=== PATIENT | female | born 1980 | race Caucasian/White ===

== ENCOUNTER 2020-07-08 09:48 | Emergency (ER) | payer SELFPAY ==
[~2020-07-08] VITALS: Ht 162 cm; Wt 77.0 kg
[~2020-07-08 09:48] MED LIST: AMOX500C2 PO; CHLO15MO3 MM; HYDR-1231 PO; NAPR-1070 PO; NAPR-1071 PO; TRM50T PO
--- NOTE | 2020-07-08 10:00 | ED EENT ---
History of Present Illness General Chief Complaint: Oral/Throat Problems Stated Complaint: SORE THROAT Source: patient History of Present Illness Date Seen by Provider: Jul 08, 2020 Time Seen by Provider: 09:56 Initial Comments 40-year-old female presents with sore throat. Patient reports he has been there for 3 to 4 weeks. She saw urgent care week ago and was told may be strep-like illness and nothing else was done or tested. Patient denies any fevers or chills. She does have a history of reflux but does not take any for it. She does not have a primary care provider that she is followed up with. She has no fevers or chills. She has no nausea vomiting or other systemic complaints. Allergies and Home Medications Allergies Coded Allergies: No Known Drug Allergies (Unverified , 12/16/14) Home Medications Amoxicillin 500 Mg Capsule, 1 EACH PO TID Prescribed by: AKIN PINTO on 12/16/14 1611 Chlorhexidine Gluconate 480 Ml Mouthwash, 480 ML MM BID Prescribed by: AKIN PINTO on 12/16/14 1617 Hydrocodone Bit/Acetaminophen 1 Tab Tablet, 1 TAB PO Q4H PRN for PAIN Prescribed by: LEON MENDOZA on 12/19/14 1626 Naproxen 500 Mg Tablet, 500 MG PO BID Prescribed by: JASON BLANCO on 04/23/15 1738 Naproxen Sodium 550 Mg Tablet, 550 MG PO BID PRN for PAIN Prescribed by: FABIEN ELKINS on 03/19/16 0656 Tramadol HCl 50 Mg Tablet, 50 MG PO Q6H PRN for PAIN Prescribed by: JASON BLANCO on 04/23/15 1738 Patient Home Medication List Home Medication List Reviewed: Yes Review of Systems Review of Systems Constitutional: No chills, No fever Eyes: No Symptoms Reported Ears: No Symptoms Reported Nose: no symptoms reported Mouth: no symptoms reported Throat: see HPI Respiratory: no symptoms reported Cardiovascular: no symptoms reported Musculoskeletal: no symptoms reported Skin: no symptoms reported Neurological: No Symptoms Reported Past Grxbncl-Jjuooy-Bncrgf Hx Past Med/Social Hx: Reviewed Nursing Past Med/Soc Hx Patient Social History Alcohol Beverage of Choice: Beer Type Used: Cigarettes Recent Hopitalizations: No Past Medical History Reproductive Disorders: No Sexually Transmitted Disease: No Adverse Reaction/Blood Tranf: No Family Medical History No Pertinent Family Hx Physical Exam Vital Signs Vital Signs - First Documented 07/08/20 09:56 Temp 36.8 Pulse 131 Resp 20 B/P (MAP) 120/91 (101) Pulse Ox 100 O2 Delivery Room Air Height, Weight, BMI Height: 5'4" Weight: 195lbs. oz. 88.369118hq; 30.03 BMI Method:Stated General Appearance: WD/WN, no apparent distress Eyes: bilateral eye normal inspection Nose: normal inspection Mouth/Throat: other (Posterior pharynx erythema) Neck: lymphadenopathy (L) Cardiovascular: normal peripheral pulses, regular rate, rhythm Respiratory: lungs clear, normal breath sounds Gastrointestinal: non tender, soft Neurologic/Psychiatric: alert, normal mood/affect, oriented x 3 Skin: normal color, warm/dry Progress/Results/Core Measures Results/Orders Lab Results Laboratory Tests Test 07/08/20 10:05 Range/Units Group A Streptococcus Screen NEGATIVE NEGATIVE My Orders Orders - CLEO HARDY DO Rapid Strep A Screen (07/08/20 10:00) Vital Signs/I&O 07/08/20 09:56 Temp 36.8 Pulse 131 Resp 20 B/P (MAP) 120/91 (101) Pulse Ox 100 O2 Delivery Room Air Progress Progress Note : Time: 10:28 Progress Note Patient with negative strep. Her pharyngitis this comfort has been going on for at least 3 weeks in a month. Does not seem to be infectious in nature. Discussed with her that could be allergic in nature versus side effect of reflux. I recommend she start Flonase, Zyrtec and Pepcid. But if her symptoms are not improving within 2 weeks for likely establish a primary care provider and have a further evaluation. She did have worse pain with lifting discussed. Therapies do not work and she continues to have sore throat swollen lymph nodes she may be evaluated for HIV and other etiologies. Patient stable at this time Departure Impression Primary Impression: Pharyngitis Qualified Codes: J02.9 - Acute pharyngitis, unspecified Disposition: HOME, SELF-CARE Condition: Stable Departure-Patient Inst. Referrals: NO,LOCAL PHYSICIAN (PCP/Family) Primary Care Physician Patient Instructions: Acid Reflux and GERD in Adults (DC) Add. Discharge Instructions: Zyrtec daily, Flonase or similar nasal spray as directed on package, famotidine daily as directed on package If symptoms are not improved within 2 weeks, please establish a primary care provider for further outpatient evaluation Emergency department focuses on treating and ruling out life-threatening diseases. Whenever possible, a diagnosis is given. However, most patients are given an impression based on their history, physical exam, and workup during your brief time in the ER. Information about probable diagnosis and other educational material has been provided. Please take the time to read and underst and this information. It is very important that you follow up with a physician as discussed during the visit today. Failure to adhere to your follow-up instructions may lead to severe disability, injury, or so please make sure to keep your appointments or obtain one as requested. Please keep in mind the emergency department is not designed to your primary care or "family doctor" and nonurgent issues are best evaluated by an outpatient physician All discharge instructions reviewed with patient and/or family. Voiced understanding. CLEO HARDY DO Jul 08, 2020 10:00
[2020-07-08 10:38] VITALS: BP 120/91
== END 2020-07-08 10:38 | disposition home or self-care (01) ==
LOC: EDUNIT# 09:48 → ER 09:49
DX: J02.9 Acute pharyngitis, unspecified (principal)
CPT/HCPCS: 87430; 99284

== ENCOUNTER 2020-07-10 05:58 | Emergency (ER) | payer SELFPAY ==
[~2020-07-10] VITALS: Ht 162 cm; Wt 77.0 kg
--- NOTE | 2020-07-10 06:40 | ED EENT ---
History of Present Illness General Chief Complaint: Oral/Throat Problems Stated Complaint: COUGH,SORE THROAT,TESTED NEG 1 WEEK AGO Source: patient Exam Limitations: no limitations History of Present Illness Date Seen by Provider: Jul 10, 2020 Time Seen by Provider: 06:30 Initial Comments The patient presents to the ER by private conveyance with chief complaint of 2 weeks sore throat feeling like she has something in the back of her throat making it difficult to swallow fluids. She is not having a hard time breathing. No fevers or chills. She was here yesterday and was swabbed for strep which was negative. It has woke her up several times in the night. No other significant medical history. She does have very poor dentition and does not follow with a dentist or primary care doctor. She has been using Tylenol, ibuprofen and cough medicine to help with her sore throat. She rates her pain presently as an 8 out of 10. Allergies and Home Medications Allergies Coded Allergies: No Known Drug Allergies (Unverified , 12/16/14) Home Medications Amoxicillin 500 Mg Capsule, 1 EACH PO TID Prescribed by: AKIN PINTO on 12/16/14 1611 Amoxicillin 500 Mg Capsule, 500 MG PO TID Prescribed by: JENNIFER FARNSWORTH on 07/10/20 0756 Chlorhexidine Gluconate 480 Ml Mouthwash, 480 ML MM BID Prescribed by: AKIN PINTO on 12/16/14 1617 Hydrocodone Bit/Acetaminophen 1 Tab Tablet, 1 TAB PO Q4H PRN for PAIN Prescribed by: LEON MENDOZA on 12/19/14 1626 Naproxen 500 Mg Tablet, 500 MG PO BID Prescribed by: JASON BLANCO on 04/23/15 1738 Naproxen Sodium 550 Mg Tablet, 550 MG PO BID PRN for PAIN Prescribed by: FABIEN ELKINS on 03/19/16 0656 Tramadol HCl 50 Mg Tablet, 50 MG PO Q6H PRN for PAIN Prescribed by: JASON BLANCO on 04/23/15 1738 Patient Home Medication List Home Medication List Reviewed: Yes Review of Systems Review of Systems Constitutional: No chills, No diaphoresis Eyes: Denies Blindness, Denies Pain Ears: Denies Dizziness, Denies Pain Nose: denies clots, denies pain Mouth: denies pain, denies swelling Throat: see HPI, pain, swelling; denies neck stiffness, denies hoarse, denies aphonia, denies muffled; painful swallowing, difficulty with fluids Respiratory: cough (Nonproductive); No phlegm, No short of breath Cardiovascular: No chest pain, No edema Gastrointestinal: No abdominal pain, No nausea : No Past Fhauclm-Lqfljk-Nunaav Hx Patient Social History Alcohol Use: Occasionally Uses Alcohol Beverage of Choice: Beer Smoking Status: Current Everyday Smoker Type Used: Cigarettes Recent Hopitalizations: No Seasonal Allergies Seasonal Allergies: No Past Medical History Surgeries: No Respiratory: No Cardiac: Yes (tachycardia) Neurological: No Reproductive Disorders: No Sexually Transmitted Disease: No Genitourinary: No Gastrointestinal: Yes Gastroesophageal Reflux Musculoskeletal: No Endocrine: No HEENT: No Cancer: No Psychosocial: Yes Depression Integumentary: No Blood Disorders: No Adverse Reaction/Blood Tranf: No Family Medical History No Pertinent Family Hx Physical Exam Vital Signs Vital Signs - First Documented 07/10/20 06:24 Temp 36.7 Pulse 114 Resp 18 B/P (MAP) 129/92 (104) Pulse Ox 97 O2 Delivery Room Air Height, Weight, BMI Height: 5'4" Weight: 195lbs. oz. 88.661465fn; 29.00 BMI Method:Stated General Appearance: WD/WN, mild distress Eyes: bilateral eye normal inspection, bilateral eye PERRL, bilateral eye EOMI Ears: bilateral ear auricle normal, bilateral ear canal normal, bilateral ear TM normal Nose: normal inspection; No active bleeding, No discharge Mouth/Throat: No tongue swollen, No tonsillar exudate, No uvula swelling, No voice changes; other (Retropharyngeal erythema, injection and left-sided peritonsillar soft tissue edema. Extensive dental caries with multiple broken teeth and gingivitis.) Neck: full range of motion, normal inspection, other (Palpable 1 x 3 cm tender, mobile lymph node on the anterior superior cervical lymph node chain.) Cardiovascular: normal peripheral pulses, regular rate, rhythm Respiratory: lungs clear, normal breath sounds Neurologic/Psychiatric: alert, oriented x 3 Skin: normal color, warm/dry Progress/Results/Core Measures Results/Orders Lab Results Laboratory Tests Test 07/10/20 06:35 Range/Units White Blood Count 8.7 4.3-11.0 10^3/uL Red Blood Count 4.21 3.80-5.11 10^6/uL Hemoglobin 10.6 L 11.5-16.0 g/dL Hematocrit 34 L 35-52 % Mean Corpuscular Volume 80 80-99 fL Mean Corpuscular Hemoglobin 25 25-34 pg Mean Corpuscular Hemoglobin Concent 32 32-36 g/dL Red Cell Distribution Width 15.4 H 10.0-14.5 % Platelet Count 437 H 130-400 10^3/uL Mean Platelet Volume 9.7 9.0-12.2 fL Immature Granulocyte % (Auto) 0 % Neutrophils (%) (Auto) 75 42-75 % Lymphocytes (%) (Auto) 13 12-44 % Monocytes (%) (Auto) 10 0-12 % Eosinophils (%) (Auto) 1 0-10 % Basophils (%) (Auto) 1 0-10 % Neutrophils # (Auto) 6.6 1.8-7.8 10^3/uL Lymphocytes # (Auto) 1.1 1.0-4.0 10^3/uL Monocytes # (Auto) 0.8 0.0-1.0 10^3/uL Eosinophils # (Auto) 0.1 0.0-0.3 10^3/uL Basophils # (Auto) 0.1 0.0-0.1 10^3/uL Immature Granulocyte # (Auto) 0.0 0.0-0.1 10^3/uL Sodium Level 134 L 135-145 MMOL/L Potassium Level 4.7 3.6-5.0 MMOL/L Chloride Level 100 98-107 MMOL/L Carbon Dioxide Level 22 21-32 MMOL/L Anion Gap 12 5-14 MMOL/L Blood Urea Nitrogen 14 7-18 MG/DL Creatinine 0.78 0.60-1.30 MG/DL Estimat Glomerular Filtration Rate > 60 BUN/Creatinine Ratio 18 Glucose Level 103 70-105 MG/DL Calcium Level 8.6 8.5-10.1 MG/DL Corrected Calcium 9.0 8.5-10.1 MG/DL Total Bilirubin 0.4 0.1-1.0 MG/DL Aspartate Amino Transf (AST/SGOT) 30 5-34 U/L Alanine Aminotransferase (ALT/SGPT) 33 0-55 U/L Alkaline Phosphatase 152 H 40-136 U/L Total Protein 9.0 H 6.4-8.2 GM/DL Albumin 3.5 3.2-4.5 GM/DL Serum Test, Qualitative NEGATIVE NEGATIVE My Orders Orders - JENNIFER FRANSWORTH Ketorolac Injection (Toradol Injection) (07/10/20 06:45) Cbc With Automated Diff (07/10/20 06:35) Comprehensive Metabolic Panel (07/10/20 06:35) Ct Neck (Soft Tissue) W (07/10/20 06:35) Lactated Ringers (Lr 1000 Ml Iv Solution (07/10/20 06:45) Ed Iv/Invasive Line Start (07/10/20 06:35) Hcg,Qualitative Serum (07/10/20 06:40) Iohexol Injection (Omnipaque 350 Mg/Ml 1 (07/10/20 07:30) Ns (Ivpb) (Sodium Chloride 0.9% Ivpb Bag (07/10/20 07:30) Ceftriaxone For Iv Use (Rocephin For I (07/10/20 08:00) Medications Given in ED Current Medications Medications Dose Ordered Sig/Cynthia Route Start Time Stop Time Status Last Admin Dose Admin Ceftriaxone Sodium 1000 mg/ Sterile Water 10 ml @ 200 mls/hr ONCE ONCE IV 07/10/20 08:00 07/10/20 08:02 DC 07/10/20 08:03 200 MLS/HR Iohexol 75 ml ONCE ONCE IV 07/10/20 07:30 07/10/20 07:31 DC 07/10/20 07:24 75 ML Ketorolac Tromethamine 30 mg ONCE ONCE IVP 07/10/20 06:45 07/10/20 06:46 DC 07/10/20 06:49 30 MG Lactated Ringer's 1,000 ml @ 0 mls/hr Q0M ONCE IV 07/10/20 06:45 07/10/20 06:46 DC 07/10/20 06:49 1,000 MLS/HR Sodium Chloride 80 ml ONCE ONCE IV 07/10/20 07:30 07/10/20 07:31 DC 07/10/20 07:24 80 ML Vital Signs/I&O 07/10/20 06:24 Temp 36.7 Pulse 114 Resp 18 B/P (MAP) 129/92 (104) Pulse Ox 97 O2 Delivery Room Air Progress Progress Note : Time: 06:43 Progress Note Suspect a soft tissue infection possible abscess. Plan to get a CT scan and some basic labs as well as give her a liter of fluids. Will initiate antibiotics as appropriate. Previous rapid strep culture is pending. Diagnostic Imaging Diagonstic Imaging: CT Plain Films/CT/US/NM/MRI: other (Soft tissue neck) Comments Prominent bilateral Ester tonsils with subtle associated hypoattenuation measuring up to 7 mm on the left. Consistent with tonsillitis. Hypoattenuation is favored to represent phlegmon or edema but an early abscess formation is not excluded. Pharyngeal mucosal thickening compatible with pharyngitis. NAME: ONI STACY MED REC#: [id number] PT STATUS: REG ER : 1980 PHYSICIAN: JENNIFER FARNSWORTH MD ADMIT DATE: 07/10/20/ER Draft Date of Exam:07/10/20 CT NECK (SOFT TISSUE) W PROCEDURE: CT neck soft tissue with contrast. TECHNIQUE: Multiple contiguous axial images were obtained through the neck after the administration of contrast. Auto Exposure Controls were utilized during the CT exam to meet ALARA standards for radiation dose reduction. INDICATION: Cough and sore throat. A retropharyngeal abscess COMPARISON: None FINDINGS: The parotid, submandibular, and thyroid glands are unremarkable. There are prominent level 2 lymph nodes bilaterally, which are most likely reactive. These appear symmetric. There is mild thickening of the pharyngeal mucosa, but there is no rim-enhancing or drainable fluid collection seen. The tonsils are mildly prominent, but again no drainable fluid collection is seen. No calcifications are identified. No enhancing masses are seen. No acute osseous abnormality is seen. Imaged portions of the lung apices appear normal. IMPRESSION: 1. Pharyngitis with no rim-enhancing or drainable fluid collection seen in the neck. 2. Mildly prominent cervical lymph nodes bilaterally, likely reactive. Dictated on workstation # [id number] Dict: 07/10/20 0738 Trans: 07/10/20 0746 [facility] [id number] Interpreted by: WESTLEY BLANCHARD MD Electronically signed by: Reviewed: Reviewed by Me Departure Impression Primary Impression: Tonsillopharyngitis Disposition: 01 HOME, SELF-CARE Condition: Stable Departure-Patient Inst. Decision time for Depature: 07:54 Referrals: NO,LOCAL PHYSICIAN (PCP/Family) Primary Care Physician Patient Instructions: Tooth Abscess (DC) Add. Discharge Instructions: Your strep throat culture from yesterday is still pending and does not have a read yet today. However it is possible you have a bacterial infection in your neck it just does not causing a collection of fluid known as an abscess to be drained. We will put you on some antibiotics to help clear this over the next week. You can start them tomorrow morning 1 capsule amoxicillin 3 times a day. Salt water gargles for swelling in the throat as often as necessary. Throat lozenges or Chloraseptic sprays may also be helpful for painful swallowing. If at the end of 1 week of antibiotics you are still having significant symptoms then please return to your primary care doctor or to the ER for further evaluation and management. All discharge instructions reviewed with patient and/or family. Voiced understanding. Scripts Amoxicillin (Amoxicillin) 500 Mg Capsule 500 MG PO TID for 7 Days, #21 CAP 0 Refills Prov: JENNIFER FARNSWORTH 07/10/20 JENNIFER FARNSWORTH Jul 10, 2020 06:40
[2020-07-10] MEDS ORDERED: LACTATED RINGERS 1,000 ML IV ONE (06:45)
[2020-07-10] MEDS ORDERED: KETOROLAC 30 MG/ML VIAL IVP ONE (06:45)
[2020-07-10 06:47] LABS: BASOPHILS # (AUTO) 0.1 10^3/uL (0.0-0.1); BASOPHILS % (AUTO) 1 % (0-10); EOSINOPHILS # (AUTO) 0.1 10^3/uL (0.0-0.3); EOSINOPHILS % (AUTO) 1 % (0-10); HEMATOCRIT 34 % (35-52); HEMOGLOBIN 10.6 g/dL (11.5-16.0); LYMPHOCYTES # (AUTO) 1.1 10^3/uL (1.0-4.0); LYMPHOCYTES % (AUTO) 13 % (12-44); MEAN CORPUSCULAR HEMOGLOBIN 25 pg (25-34); MEAN CORPUSCULAR HGB CONC 32 g/dL (32-36); MEAN CORPUSCULAR VOLUME 80 fL (80-99); MEAN PLATELET VOLUME 9.7 fL (9.0-12.2); MONOCYTES # (AUTO) 0.8 10^3/uL (0.0-1.0); MONOCYTES % (AUTO) 10 % (0-12); NEUTROPHILS # (AUTO) 6.6 10^3/uL (1.8-7.8); NEUTROPHILS % (AUTO) 75 % (42-75); PLATELET COUNT 437 10^3/uL (130-400); WHITE BLOOD COUNT 8.7 10^3/uL (4.3-11.0)
[2020-07-10 07:02] LABS: ALBUMIN 3.5 GM/DL (3.2-4.5); CHLORIDE 100 MMOL/L (98-107); POTASSIUM 4.7 MMOL/L (3.6-5.0); SODIUM 134 MMOL/L (135-145)
[2020-07-10 07:03] LABS: CALCIUM 8.6 MG/DL (8.5-10.1)
[2020-07-10 07:05] LABS: GLUCOSE 103 MG/DL (70-105)
[2020-07-10 07:06] LABS: BILIRUBIN,TOTAL 0.4 MG/DL (0.1-1.0); CARBON DIOXIDE 22 MMOL/L (21-32)
[2020-07-10 07:08] LABS: ALKALINE PHOSPHATASE 152 U/L (40-136); CREATININE SERUM 0.78 MG/DL (0.60-1.30); GFR ESTIMATED > 60
[2020-07-10 07:09] LABS: BUN/CREATININE RATIO 18
[2020-07-10 07:11] LABS: ALANINE AMINOTRANSFERASE 33 U/L (0-55)
[2020-07-10] MEDS ORDERED: NS 100 ML (IVPB) BAG IV ONE (07:30)
[2020-07-10] MEDS ORDERED: IOHEXOL 350 MG/ML 100 ML (OMNIPAQUE 350) VIAL IV ONE (07:30)
--- NOTE | 2020-07-10 07:46 | Diagnostic Imaging Report ---
PROCEDURE: CT neck soft tissue with contrast. TECHNIQUE: Multiple contiguous axial images were obtained through the neck after the administration of contrast. Auto Exposure Controls were utilized during the CT exam to meet ALARA standards for radiation dose reduction. INDICATION: Cough and sore throat. A retropharyngeal abscess COMPARISON: None FINDINGS: The parotid, submandibular, and thyroid glands are unremarkable. There are prominent level 2 lymph nodes bilaterally, which are most likely reactive. These appear symmetric. There is mild thickening of the pharyngeal mucosa, but there is no rim-enhancing or drainable fluid collection seen. The tonsils are mildly prominent, but again no drainable fluid collection is seen. No calcifications are identified. No enhancing masses are seen. No acute osseous abnormality is seen. Imaged portions of the lung apices appear normal. IMPRESSION: 1. Pharyngitis with no rim-enhancing or drainable fluid collection seen in the neck. 2. Mildly prominent cervical lymph nodes bilaterally, likely reactive. Dictated by: Dictated on workstation # [id number]
[2020-07-10] MEDS ORDERED: AMOX500C2 PO (07:56)
[2020-07-10] MEDS ORDERED: cefTRIAXone FOR IV USE 1,000 MG in WATER (STERILE) FOR INJECTION 10 ML IV ONE (08:00)
[2020-07-10 08:18] VITALS: BP 117/71
== END 2020-07-10 08:18 | disposition home or self-care (01) ==
LOC: EDUNIT# 05:58 → ER 06:01
DX: B00.2 Herpesviral gingivostomatitis and pharyngotonsillitis (principal); F17.210 Nicotine dependence, cigarettes, uncomplicated
CPT/HCPCS: 36415; 70491; 80053; 84703; 85025

== ENCOUNTER 2021-02-23 11:00 | Emergency (ER) | payer SELFPAY ==
[~2021-02-23] VITALS: Ht 165 cm; Wt 63.6 kg
[2021-02-23] MEDS ORDERED: CYCL10TA9 PO (11:26)
--- NOTE | 2021-02-23 11:26 | ED Upper Extremity ---
General Chief Complaint: Upper Extremity Stated Complaint: R HAND PAIN Nursing Triage Note: AMB TO ED WITH C/O R WRIST PAIN X1 WEEK WORSE AT NIGHT . HAS NOT TAKEN ANY OTC PAIN MEDS (NATASHA RICKS APRN) History of Present Illness Date Seen by Provider: Feb 23, 2021 Time Seen by Provider: 11:14 Initial Comments This is a well-appearing 41-year-old female presented to the ER with complaints of right wrist numbness. States she has a history of carpal tunnel syndrome and while doing hospital today has exacerbated her symptoms. States that she has plans to follow-up with primary care provider today as her symptoms are progressively worsening. Has not tried ice or anti-inflammatories. States that her symptoms improve with rest and hanging her hand down. (NATASHA RICKS APRN) Allergies and Home Medications Allergies Coded Allergies: No Known Drug Allergies (Unverified , 12/16/14) Patient Home Medication List Home Medication List Reviewed: Yes (NATASHA RICKS APRN) Amoxicillin (Amoxicillin) 500 Mg Capsule, 1 EACH PO TID Prescribed by: AKIN PINTO on 12/16/14 1611 Amoxicillin (Amoxicillin) 500 Mg Capsule, 500 MG PO TID Prescribed by: JENNIFER FARNSWORTH on 07/10/20 0756 Chlorhexidine Gluconate (Peridex) 480 Ml Mouthwash, 480 ML MM BID Prescribed by: AKIN PINTO on 12/16/14 1617 Cyclobenzaprine HCl (Cyclobenzaprine HCl) 10 Mg Tablet, 10 MG PO Q8H PRN for SPASMS Prescribed by: NATASHA RICKS on 02/23/21 1126 Hydrocodone Bit/Acetaminophen (Hydrocodone-Apap 5-325 Tablet) 1 Tab Tablet, 1 TAB PO Q4H PRN for PAIN Prescribed by: LEON MENDOZA on 12/19/14 1626 Naproxen (Naprosyn) 500 Mg Tablet, 500 MG PO BID Prescribed by: JASON BLANCO on 04/23/15 1738 Naproxen Sodium (Anaprox Ds) 550 Mg Tablet, 550 MG PO BID PRN for PAIN Prescribed by: FABIEN ELKINS on 03/19/16 0656 Tramadol HCl (Tramadol HCl) 50 Mg Tablet, 50 MG PO Q6H PRN for PAIN Prescribed by: JASON BLANCO on 04/23/15 1738 Review of Systems Constitutional: no symptoms reported EENTM: no symptoms reported Respiratory: no symptoms reported Cardiovascular: no symptoms reported Gastrointestinal: no symptoms reported Genitourinary: no symptoms reported Musculoskeletal: see HPI Skin: no symptoms reported (NATASHA RICKS APRN) Past Tosbsov-Kvsfyi-Ajhpgo Hx Patient Social History Tobacco Use?: Yes Substance use?: No (NATASHA RICKS APRN) Immunizations Up To Date Tetanus Booster (TDap): Unknown First/Initial COVID19 Vaccinat: DEC Second COVID19 Vaccination Jhon: DEC COVID19 Vaccine Bottom Cementer: Travel Notes (NATASHA RICKS APRN) Seasonal Allergies Seasonal Allergies: No (NATASHA RICKS APRN) Past Medical History Surgeries: No Respiratory: No Cardiac: Yes (tachycardia) Neurological: No Reproductive Disorders: No Sexually Transmitted Disease: No Genitourinary: No Gastrointestinal: Yes Gastroesophageal Reflux Musculoskeletal: No Endocrine: No HEENT: No Cancer: No Psychosocial: Yes Depression Integumentary: No Blood Disorders: No Adverse Reaction/Blood Tranf: No (NATASHA RICKS APRN) Family Medical History No Pertinent Family Hx (NATASHA RICKS APRN) Physical Exam Vital Signs Vital Signs - First Documented 02/23/21 11:06 Temp 36.2 Pulse 116 Resp 18 B/P (MAP) 143/98 (113) Pulse Ox 98 (AKIN GALVEZ MD) Vital Signs Capillary Refill : Less Than 3 Seconds (NATASHA RICKS APRN) Height, Weight, BMI Height: 5'4" Weight: 195lbs. oz. 88.966523nf; 23.00 BMI Method:Stated General Appearance: WD/WN, no apparent distress HEENT: normal ENT inspection, pharynx normal Neck: full range of motion, normal inspection Cardiovascular: regular rate, rhythm, no murmur Respiratory: lungs clear, normal breath sounds Back: normal inspection, no vertebral tenderness Shoulder: normal inspection, non-tender, no evidence of injury Elbow/Forearm: normal inspection, non-tender, no evidence of injury Hand: normal inspection, non-tender, no evidence of injury, normal ROM, Right (positive phalen's ) Neurologic/Tendon: normal motor functions, normal tendon functions, responds to pain Neurologic/Psychiatric: no motor/sensory deficits, alert, normal mood/affect, oriented x 3 Skin: normal color, warm/dry (NATASHA RICKS APRN) Progress/Results/Core Measures Results/Orders Medications Given in ED Current Medications Medications Dose Ordered Sig/Cynthia Route Start Time Stop Time Status Last Admin Dose Admin Ketorolac Tromethamine 30 mg ONCE ONCE IM 02/23/21 11:30 02/23/21 11:31 DC 02/23/21 11:32 30 MG (AKIN GALVEZ MD) Vital Signs/I&O 02/23/21 02/23/21 11:06 11:46 Temp 36.2 36.2 Pulse 116 116 Resp 18 18 B/P (MAP) 143/98 (113) 143/98 Pulse Ox 98 98 (AKIN GALVEZ MD) Blood Pressure Mean: 113 Progress Progress Note : Progress Note Patient examined and in no acute distress. Discussed conservative therapy at home such as applying ice, rest, wearing splints, and NSAID's. She is agreeable with all these modalities. We will give her Toradol 30 mg IM and a muscle re laxer for bedtime. Reviewed discharge plan of care and she is agreeable with plan. (NATASHA RICKS APRN) Departure Impression Primary Impression: Carpal tunnel syndrome of right wrist Disposition: 01 HOME, SELF-CARE Condition: Stable Departure-Patient Inst. Decision time for Depature: 11:23 (NATASHA RICKS APRN) Referrals: NO,LOCAL PHYSICIAN (PCP/Family) Primary Care Physician Patient Instructions: Carpal Tunnel Exercises, Carpal Tunnel Syndrome (DC) Add. Discharge Instructions: Plan: 1. Follow up with your primary care provider for referral if your symptoms continue to persist or worsen. 2. To help ease the symptoms of carpal tunnel syndrome, you may want to put ice on your wrist or soak it in an ice bath. Try it for 10 to 15 minutes, once or twice an hour. 3. You can also gently shake your wrist or hang it over the side of your bed for pain that wakes you up at night. 4. Another way to get relief: Rest your hands and wrists as much as possible. Give them a break from things that trigger your symptoms. 5. To ease pain, take [id number] meds like aspirin, ibuprofen, or naproxen. 6. Wear brace at bedtime. 7. Return for any new, concerning, or worsening symptoms. All discharge instructions reviewed with patient and/or family. Voiced understanding. Scripts Cyclobenzaprine HCl (Cyclobenzaprine HCl) 10 Mg Tablet 10 MG PO Q8H PRN for SPASMS, #15 TAB 0 Refills Prov: NATASHA RICKS HOGSHEAD STOCK CLERK 02/23/21 ATTENDING PHYSICIAN NOTE: I was physically present as attending physician in the emergency department during the care of this patient, but I was not directly involved in the decision making or delivery of care for this patient. (AKIN GALVEZ MD) Copy Copies To 1: BRICE ANDRE STORMY D APRN Feb 23, 2021 11:26 AKIN GALVEZ MD Feb 23, 2021 12:29
[2021-02-23] MEDS ORDERED: KETOROLAC 30 MG/ML VIAL IM ONE (11:30)
[2021-02-23 11:46] VITALS: BP 143/98
== END 2021-02-23 11:47 | disposition home or self-care (01) ==
LOC: EDUNIT# 11:00 → ER 11:02
DX: G56.01 Carpal tunnel syndrome, right upper limb (principal)
CPT/HCPCS: 99284

== ENCOUNTER 2021-03-01 10:25 | Emergency (ER) | payer SELFPAY ==
[~2021-03-01] VITALS: Ht 167 cm; Wt 64.0 kg
[~2021-03-01 10:25] MED LIST changes: +CYCL10TA9 PO
--- NOTE | 2021-03-01 10:45 | ED Abdominal Pain ---
General Chief Complaint: Rect Problems Stated Complaint: BLOOD IN STOOL,LOW BACK PAIN Source of Information: Patient Exam Limitations: No Limitations History of Present Illness Date Seen by Provider: Mar 01, 2021 Time Seen by Provider: 10:41 Initial Comments To ER with c/o rectal bleeding since last night. Her first bowel movement was normal stool mixed with blood and then her second bowel movement was a small amount of clotted blood. She had some mid low back pain but no abdominal pain. She has some intermittent right-sided abdominal pain but none today. No fevers or chills. No nausea or vomiting. 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 She stopped this about 3 weeks ago she states. Timing/Duration: 1-2 Days Severity/Quality: Moderate Radiation: No Radiation Activities at Onset: None Associated Symptoms: Denies Symptoms Allergies and Home Medications Allergies Coded Allergies: No Known Drug Allergies (Unverified , 12/16/14) Patient Home Medication List Home Medication List Reviewed: Yes Amoxicillin (Amoxicillin) 500 Mg Capsule, 1 EACH PO TID Prescribed by: AKIN PINTO on 12/16/14 1611 Amoxicillin (Amoxicillin) 500 Mg Capsule, 500 MG PO TID Prescribed by: JENNIFER FARNSWORTH on 07/10/20 0756 Chlorhexidine Gluconate (Peridex) 480 Ml Mouthwash, 480 ML MM BID Prescribed by: AKIN PINTO on 12/16/14 1617 Cyclobenzaprine HCl (Cyclobenzaprine HCl) 10 Mg Tablet, 10 MG PO Q8H PRN for SPASMS Prescribed by: NATASHA RICKS on 02/23/21 1126 Hydrocodone Bit/Acetaminophen (Hydrocodone-Apap 5-325 Tablet) 1 Tab Tablet, 1 TAB PO Q4H PRN for PAIN Prescribed by: LEON MENDOZA on 12/19/14 1626 Naproxen (Naprosyn) 500 Mg Tablet, 500 MG PO BID Prescribed by: JASON BLANCO on 04/23/15 1738 Naproxen Sodium (Anaprox Ds) 550 Mg Tablet, 550 MG PO BID PRN for PAIN Prescribed by: FABIEN ELKINS on 03/19/16 0656 Tramadol HCl (Tramadol HCl) 50 Mg Tablet, 50 MG PO Q6H PRN for PAIN Prescribed by: JASON BLANCO on 04/23/15 1738 Review of Systems Review of Systems Constitutional: see HPI EENTM: No Symptoms Reported Respiratory: No Symptoms Reported Cardiovascular: No Symptoms Reported Gastrointestinal: See HPI; Denies Abdominal Pain, Denies Constipated, Denies Diarrhea, Denies Nausea, Denies Other Genitourinary: No Symptoms Reported Musculoskeletal: no symptoms reported Skin: no symptoms reported Psychiatric/Neurological: No Symptoms Reported Endocrine: No Symptoms Reported Hematologic/Lymphatic: No Symptoms Reported Past Hgyfeit-Zhiszb-Wuqiug Hx Immunizations Up To Date Tetanus Booster (TDap): Unknown First/Initial COVID19 Vaccinat: DEC Second COVID19 Vaccination Jhon: DEC Seasonal Allergies Seasonal Allergies: No Past Medical History Surgeries: No Respiratory: No Cardiac: Yes (tachycardia) Neurological: No Reproductive Disorders: No Sexually Transmitted Disease: No Genitourinary: No Gastrointestinal: Yes Gastroesophageal Reflux Musculoskeletal: No Endocrine: No HEENT: No Cancer: No Psychosocial: Yes Depression Integumentary: No Blood Disorders: No Adverse Reaction/Blood Tranf: No Family Medical History No Pertinent Family Hx Physical Exam Vital Signs Vital Signs - First Documented 03/01/21 10:34 Temp 36.1 Pulse 65 Resp 18 B/P (MAP) 145/91 (109) Pulse Ox 100 Capillary Refill : Height/Weight/BMI Height: 5'4" Weight: 195lbs. oz. 88.706979wv; 23.00 BMI Method:Stated General Appearance: WD/WN, no apparent distress Respiratory: chest non-tender, no respiratory distress, no accessory muscle use Cardiovascular: regular rate, rhythm, no murmur Gastrointestinal: normal bowel sounds, non tender, soft; No tenderness Rectal: other (Rectal exam done with JARRELL Cabello at the bedside. There are a few hemorrhoids no blood at the anus and no blood on digital rectal exam) Extremities: normal range of motion, non-tender Neurologic/Psychiatric: alert, normal mood/affect, oriented x 3 Skin: normal color, warm/dry Progress/Results/Core Measures Results/Orders Lab Results Laboratory Tests Test 03/01/21 11:21 03/01/21 11:40 Range/Units White Blood Count 4.8 4.3-11.0 10^3/uL Red Blood Count 3.76 L 3.80-5.11 10^6/uL Hemoglobin 10.1 L 11.5-16.0 g/dL Hematocrit 32 L 35-52 % Mean Corpuscular Volume 84 80-99 fL Mean Corpuscular Hemoglobin 27 25-34 pg Mean Corpuscular Hemoglobin Concent 32 32-36 g/dL Red Cell Distribution Width 16.9 H 10.0-14.5 % Platelet Count 212 130-400 10^3/uL Mean Platelet Volume 10.5 9.0-12.2 fL Immature Granulocyte % (Auto) 0 % Neutrophils (%) (Auto) 40 L 42-75 % Lymphocytes (%) (Auto) 45 H 12-44 % Monocytes (%) (Auto) 10 0-12 % Eosinophils (%) (Auto) 3 0-10 % Basophils (%) (Auto) 2 0-10 % Neutrophils # (Auto) 1.9 1.8-7.8 10^3/uL Lymphocytes # (Auto) 2.1 1.0-4.0 10^3/uL Monocytes # (Auto) 0.5 0.0-1.0 10^3/uL Eosinophils # (Auto) 0.2 0.0-0.3 10^3/uL Basophils # (Auto) 0.1 0.0-0.1 10^3/uL Immature Granulocyte # (Auto) 0.0 0.0-0.1 10^3/uL Prothrombin Time 13.1 12.2-14.7 SEC INR Comment 1.0 0.8-1.4 Sodium Level 140 135-145 MMOL/L Potassium Level 3.8 3.6-5.0 MMOL/L Chloride Level 110 H 98-107 MMOL/L Carbon Dioxide Level 19 L 21-32 MMOL/L Anion Gap 11 5-14 MMOL/L Blood Urea Nitrogen 15 7-18 MG/DL Creatinine 0.87 0.60-1.30 MG/DL Estimat Glomerular Filtration Rate 72 BUN/Creatinine Ratio 17 Glucose Level 92 70-105 MG/DL Calcium Level 9.3 8.5-10.1 MG/DL Corrected Calcium 9.6 8.5-10.1 MG/DL Total Bilirubin 0.3 0.1-1.0 MG/DL Aspartate Amino Transf (AST/SGOT) 25 5-34 U/L Alanine Aminotransferase (ALT/SGPT) 26 0-55 U/L Alkaline Phosphatase 70 40-136 U/L Total Protein 6.7 6.4-8.2 GM/DL Albumin 3.6 3.2-4.5 GM/DL Urine Color YELLOW Urine Clarity CLEAR Urine pH 6.0 5-9 Urine Specific [place] >=1.030 1.016-1.022 Urine Protein NEGATIVE NEGATIVE Urine Glucose (UA) NEGATIVE NEGATIVE Urine Ketones NEGATIVE NEGATIVE Urine Nitrite NEGATIVE NEGATIVE Urine Bilirubin NEGATIVE NEGATIVE Urine Urobilinogen 0.2 < = 1.0 MG/DL Urine Leukocyte Esterase NEGATIVE NEGATIVE Urine RBC (Auto) NEGATIVE NEGATIVE Urine RBC 0-2 /HPF Urine WBC 0-2 /HPF Urine Crystals PRESENT H /LPF Urine Amorphous Sediment RARE JOEL URATES H /LPF Urine Bacteria NEGATIVE /HPF Urine Casts NONE /LPF Urine Mucus MODERATE H /LPF Urine Culture Indicated NO My Orders Orders - GUERA PAZ APRN Cbc With Automated Diff (03/01/21 10:39) Comprehensive Metabolic Panel (03/01/21 10:39) Protime With Inr (03/01/21 10:39) Ua Culture If Indicated (03/01/21 10:39) Vital Signs/I&O 03/01/21 10:34 Temp 36.1 Pulse 65 Resp 18 B/P (MAP) 145/91 (109) Pulse Ox 100 Departure Impression Primary Impression: History of rectal bleeding Disposition: HOME, SELF-CARE Condition: Stable Departure-Patient Inst. Decision time for Depature: 10:45 Referrals: LARISA KANG BRETT D DO KIDO, TAKAAKI MD NO,LOCAL PHYSICIAN (PCP) Primary Care Physician Patient Instructions: Colonoscopy (DC), Hemorrhoids (DC) Add. Discharge Instructions: 1. Call one of the surgeons listed tomorrow morning to make an appointment to be seen for follow-up and to discuss colonoscopy. All discharge instructions reviewed with patient and/or family. Voiced understanding. GUERA PAZ APRN Mar 01, 2021 10:45
[2021-03-01 11:29] LABS: BASOPHILS # (AUTO) 0.1 10^3/uL (0.0-0.1); BASOPHILS % (AUTO) 2 % (0-10); EOSINOPHILS # (AUTO) 0.2 10^3/uL (0.0-0.3); EOSINOPHILS % (AUTO) 3 % (0-10); HEMATOCRIT 32 % (35-52); HEMOGLOBIN 10.1 g/dL (11.5-16.0); LYMPHOCYTES # (AUTO) 2.1 10^3/uL (1.0-4.0); LYMPHOCYTES % (AUTO) 45 % (12-44); MEAN CORPUSCULAR HEMOGLOBIN 27 pg (25-34); MEAN CORPUSCULAR HGB CONC 32 g/dL (32-36); MEAN CORPUSCULAR VOLUME 84 fL (80-99); MEAN PLATELET VOLUME 10.5 fL (9.0-12.2); MONOCYTES # (AUTO) 0.5 10^3/uL (0.0-1.0); MONOCYTES % (AUTO) 10 % (0-12); NEUTROPHILS # (AUTO) 1.9 10^3/uL (1.8-7.8); NEUTROPHILS % (AUTO) 40 % (42-75); PLATELET COUNT 212 10^3/uL (130-400); WHITE BLOOD COUNT 4.8 10^3/uL (4.3-11.0)
[2021-03-01 11:37] LABS: ALBUMIN 3.6 GM/DL (3.2-4.5); POTASSIUM 3.8 MMOL/L (3.6-5.0)
[2021-03-01 11:38] LABS: CALCIUM 9.3 MG/DL (8.5-10.1)
[2021-03-01 11:39] LABS: TOTAL PROTEIN 6.7 GM/DL (6.4-8.2)
[2021-03-01 11:41] LABS: BILIRUBIN,TOTAL 0.3 MG/DL (0.1-1.0)
[2021-03-01 11:43] LABS: CREATININE SERUM 0.87 MG/DL (0.60-1.30); PROTHROMBIN TIME PATIENT 13.1 SEC (12.2-14.7)
[2021-03-01 11:53] LABS: BILIRUBIN,URINE NEGATIVE (NEGATIVE); CLARITY,URINE CLEAR; COLOR,URINE YELLOW; GLUCOSE, URINE (UA) NEGATIVE (NEGATIVE); KETONES,URINE NEGATIVE (NEGATIVE); LEUKOCYTE ESTERASE ,URINE NEGATIVE (NEGATIVE); NITRITE,URINE NEGATIVE (NEGATIVE); PROTEIN,URINE NEGATIVE (NEGATIVE)
[2021-03-01 12:08] LABS: AMORPHOUS SEDIMENT,UR RARE AMOR URATES /LPF; BACTERIA,URINE NEGATIVE /HPF; RBC,URINE 0-2 /HPF; WBC,URINE 0-2 /HPF
[2021-03-01 12:26] VITALS: BP 145/91
== END 2021-03-01 12:26 | disposition home or self-care (01) ==
LOC: EDUNIT# 10:25 → ER 10:27
DX: K62.5 Hemorrhage of anus and rectum (principal)
CPT/HCPCS: 36415; 80053; 81000; 85025; 85610; 99282

== ENCOUNTER 2021-03-04 09:14 | Emergency (ER) | payer SELFPAY ==
[2021-03-04] MEDS ORDERED: PRD50T PO (10:07)
--- NOTE | 2021-03-04 10:07 | ED Upper Extremity ---
General Chief Complaint: Upper Extremity Stated Complaint: BI LAT HAND PAIN Nursing Triage Note: Pt arrives via POV from home with c/o bilateral hand pain et swelling r/t chronic carpal tunnel. Pt states she has an appointment with her PCP on Tuesday but would like medication for pain to get her through the week. Pulses present bilat, able to move all fingers independently. Source: patient Exam Limitations: no limitations History of Present Illness Date Seen by Provider: Mar 04, 2021 Time Seen by Provider: 09:45 Initial Comments Patient is a 41-year-old female who presents to the emergency room today with a chief complaint of bilateral hand pain. Patient points to the thenar eminence of her right hand as a source of her pain. She is concerned about some increased swelling and symptoms that are not resolved with 1 ibuprofen every once in a while. Patient states that she was diagnosed with carpal tunnel syndrome back in 2014 or 2015. She states she has never been referred to an orthopedic surgeon. No complaints of weakness, numbness, tingling. 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 Asks for pain medication to get her through until she can see her primary care physician at [facility] clinic on Tuesday. Patient states that she has been given splints to wear for her carpal tunnel but she states it puts pressure on her hands and makes it worse. Per review of the medical record the patient was recently in the hospital with complaints of GI bleeding. Was referred to a general surgeon for endoscopy/colonoscopy. She has not followed up yet for that complaint either. Patient states that NSAIDs and Tylenol make her little nauseous. In light of her recent GI bleeding episode we will not put her on ibuprofen or naproxen but will give her a short course of steroids to take with food. Labs were reviewed from previous visit, hemoglobin was stable. I am not concerned for exacerbation of GI bleeding with short course of prednisone. Narcotics will not be given at this visit. All other review of systems reviewed and negative except as stated. Onset: last week Pain/Injury Location: bilateral hand Method of Injury: unknown Allergies and Home Medications Allergies Coded Allergies: No Known Drug Allergies (Unverified , 12/16/14) Patient Home Medication List Home Medication List Reviewed: Yes Amoxicillin (Amoxicillin) 500 Mg Capsule, 1 EACH PO TID Prescribed by: AKIN PINTO on 12/16/14 1611 Amoxicillin (Amoxicillin) 500 Mg Capsule, 500 MG PO TID Prescribed by: JENNIFER FARNSWORTH on 07/10/20 0756 Chlorhexidine Gluconate (Peridex) 480 Ml Mouthwash, 480 ML MM BID Prescribed by: AKIN PINTO on 12/16/14 1617 Cyclobenzaprine HCl (Cyclobenzaprine HCl) 10 Mg Tablet, 10 MG PO Q8H PRN for SPASMS Prescribed by: NATASHA RICKS on 02/23/21 1126 Hydrocodone Bit/Acetaminophen (Hydrocodone-Apap 5-325 Tablet) 1 Tab Tablet, 1 TAB PO Q4H PRN for PAIN Prescribed by: LEON MENDOZA on 12/19/14 1626 Naproxen (Naprosyn) 500 Mg Tablet, 500 MG PO BID Prescribed by: JASON BLANCO on 04/23/15 1738 Naproxen Sodium (Anaprox Ds) 550 Mg Tablet, 550 MG PO BID PRN for PAIN Prescribed by: FABIEN ELKINS on 03/19/16 0656 Tramadol HCl (Tramadol HCl) 50 Mg Tablet, 50 MG PO Q6H PRN for PAIN Prescribed by: JASON BLANCO on 04/23/15 1738 Review of Systems Constitutional: see HPI EENTM: no symptoms reported Respiratory: no symptoms reported Cardiovascular: no symptoms reported Gastrointestinal: no symptoms reported Genitourinary: no symptoms reported Musculoskeletal: joint pain (Bilateral thenar eminence) Skin: no symptoms reported Psychiatric/Neurological: Denies Numbness, Denies Paresthesia, Denies Weakness All Other Systems Reviewed Negative Unless Noted: Yes Past Qcqzmup-Fsxkdh-Rdqsgc Hx Patient Social History Tobacco Use?: Yes Tobacco type used: Cigarettes Smoking Status: Current Everyday Smoker Use of E-Cig and/or Vaping dev: No Substance use?: No Alcohol Use?: No Pt feels they are or have been: No Immunizations Up To Date Tetanus Booster (TDap): Unknown First/Initial COVID19 Vaccinat: 09/2020 Second COVID19 Vaccination Jhon: 10/2020 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[place]undrbar Seasonal Allergies Seasonal Allergies: No Past Medical History Surgeries: No Respiratory: No Cardiac: Yes (tachycardia) Neurological: No Reproductive Disorders: No Sexually Transmitted Disease: No Genitourinary: No Gastrointestinal: Yes Gastroesophageal Reflux Musculoskeletal: No Endocrine: No HEENT: No Cancer: No Psychosocial: Yes Depression Integumentary: No Blood Disorders: No Adverse Reaction/Blood Tranf: No Family Medical History No Pertinent Family Hx Physical Exam Vital Signs Vital Signs - First Documented 03/04/21 09:28 Temp 36.9 Pulse 99 Resp 18 B/P (MAP) 127/55 (79) Pulse Ox 100 O2 Delivery Room Air Capillary Refill : Less Than 3 Seconds Height, Weight, BMI Height: 5'4" Weight: 195lbs. oz. 88.989978wg; 22.00 BMI Method:Stated General Appearance: WD/WN, no apparent distress HEENT: PERRL/EOMI Cardiovascular: regular rate, rhythm Respiratory: no respiratory distress, no accessory muscle use Shoulder: normal inspection, non-tender, no evidence of injury, normal ROM Elbow/Forearm: normal inspection, non-tender, no evidence of injury, normal ROM Wrist: Yes normal inspection, Yes non-tender, Yes swelling (Mild bilateral wrist and hand swelling; negative Tinel's, negative Phalen's sign) Hand: normal inspection, no evidence of injury, normal ROM Neurologic/Psychiatric: no motor/sensory deficits, alert, normal mood/affect, oriented x 3 Skin: normal color, warm/dry Progress/Results/Core Measures Results/Orders Vital Signs/I&O 03/04/21 09:28 Temp 36.9 Pulse 99 Resp 18 B/P (MAP) 127/55 (79) Pulse Ox 100 O2 Delivery Room Air Blood Pressure Mean: 79 Departure Impression Primary Impression: Bilateral hand pain Disposition: 01 HOME, SELF-CARE Condition: Stable Departure-Patient Inst. Decision time for Depature: 10:05 Referrals: [facility] [place] BRANDY,LOCAL PHYSICIAN (PCP) Primary Care Physician Patient Instructions: Hand Pain Add. Discharge Instructions: Keep your hands elevated to reduce swelling. Take the prednisone, 1 pill once a day for 5 days. Always take prednisone with food. Please follow-up with general surgery as you have been instructed as well as your primary care physician this week. Scripts Prednisone (Prednisone) 50 Mg Tab 50 MG PO DAILY, #5 TAB take with food Prov: ANA NAQVI MD 03/04/21 ANA NAQVI MD Mar 04, 2021 10:07
[2021-03-04 10:24] VITALS: BP 127/55
== END 2021-03-04 10:25 | disposition home or self-care (01) ==
LOC: EDUNIT# 09:14 → ER 09:15
DX: M79.642 Pain in left hand (principal); M79.641 Pain in right hand; F17.210 Nicotine dependence, cigarettes, uncomplicated
CPT/HCPCS: 99281

== ENCOUNTER 2021-05-17 03:49 | Emergency (ER) | payer SELFPAY ==
[~2021-05-17] VITALS: Ht 165 cm; Wt 68.0 kg
[~2021-05-17 03:49] MED LIST changes: +CYCL10TA25 PO; -CYCL10TA9 PO; +PRD50T PO
[2021-05-17 03:55] VITALS: BP 132/87
[2021-05-17] MEDS ORDERED: RX-AMOXICILLIN 500 MG CAP #3 PPK PO STA (04:03)
[2021-05-17] MEDS ORDERED: RX-NAPROXEN (NAPROSYN) 250 MG TAB PPK#4 PO STA (04:03)
[2021-05-17] MEDS ORDERED: LIDO20SO23 MM (04:06)
[2021-05-17] MEDS ORDERED: NAPR500T8 PO (04:06)
[2021-05-17] MEDS ORDERED: AMOX875T2 PO (04:06)
--- NOTE | 2021-05-17 04:06 | ED EENT ---
History of Present Illness General Chief Complaint: Dental Problems/Pain Stated Complaint: MOUTH PAIN Source: patient History of Present Illness Date Seen by Provider: May 17, 2021 Time Seen by Provider: 03:58 Initial Comments PT ARRIVES VIA POV FROM HOME C/O BILATERAL LOWER DENTAL PAIN--POINTS TO MOLAR AREAS BILATERALLY STATES TEETH ARE "CRACKED" STATES PAIN HAS BEEN ONGOING FOR 3 DAYS, NO RELIEF WITH IBUPROFEN NO FEVER NO SWELLING TO FACE PT WITH CHRONIC DENTAL PROBLEMS, BUT HAS NOT SEEN A DENTIST IN MANY YEARS PCP: DARA Allergies and Home Medications Allergies Coded Allergies: No Known Drug Allergies (Unverified , 12/16/14) Patient Home Medication List Home Medication List Reviewed: Yes Amoxicillin (Amoxicillin) 500 Mg Capsule, 1 EACH PO TID Prescribed by: AKIN PINTO on 12/16/14 1611 Amoxicillin (Amoxicillin) 500 Mg Capsule, 500 MG PO TID Prescribed by: JENNIFER FARNSWORTH on 07/10/20 0756 Amoxicillin (Amoxicillin) 875 Mg Tablet, 875 MG PO BID Prescribed by: GABI BERNABE on 05/17/21 0406 Chlorhexidine Gluconate (Peridex) 480 Ml Mouthwash, 480 ML MM BID Prescribed by: AKIN PINTO on 12/16/14 1617 Cyclobenzaprine HCl (Cyclobenzaprine HCl) 10 Mg Tablet, 10 MG PO Q8H PRN for SPASMS Prescribed by: NATASHA RICKS on 02/23/21 1126 Hydrocodone Bit/Acetaminophen (Hydrocodone-Apap 5-325 Tablet) 1 Tab Tablet, 1 TAB PO Q4H PRN for PAIN Prescribed by: LEON MENDOZA on 12/19/14 1626 Lidocaine HCl (Lidocaine HCl Viscous) 15 Ml Solution, 1-2 ML MM [id number] Prescribed by: GABI BERNABE on 05/17/21 0406 Naproxen (Naprosyn) 500 Mg Tablet, 500 MG PO BID Prescribed by: JASON BLANCO on 04/23/15 1738 Naproxen (Naproxen) 500 Mg Tablet.dr, 500 MG PO BID Prescribed by: GABI BERNABE on 05/17/21 0406 Naproxen Sodium (Anaprox Ds) 550 Mg Tablet, 550 MG PO BID PRN for PAIN Prescribed by: FABIEN ELKINS on 03/19/16 0656 Prednisone (Prednisone) 50 Mg Tab, 50 MG PO DAILY Prescribed by: ANA NAQVI on 03/04/21 1007 Tramadol HCl (Tramadol HCl) 50 Mg Tablet, 50 MG PO Q6H PRN for PAIN Prescribed by: JASON BLANCO on 04/23/15 1738 Review of Systems Review of Systems Constitutional: no symptoms reported Nose: congestion Mouth: see HPI Throat: no symptoms reported Neurological: No Symptoms Reported Past Nyqgkut-Jaanom-Ylfpfn Hx Patient Social History Tobacco Use?: Yes (1/2 PPD) Tobacco type used: Cigarettes Smoking Status: Current Everyday Smoker Substance use?: Yes Substance type: Marijuana Alcohol Use?: No Immunizations Up To Date Tetanus Booster (TDap): Unknown First/Initial COVID19 Vaccinat: 09/2020 Second COVID19 Vaccination Jhon: 10/2020 Seasonal Allergies Seasonal Allergies: No Past Medical History Surgeries: No Respiratory: No Cardiac: Yes (tachycardia) Neurological: No Reproductive Disorders: No Sexually Transmitted Disease: No Genitourinary: No Gastrointestinal: Yes Gastroesophageal Reflux Musculoskeletal: No Endocrine: No HEENT: No Cancer: No Psychosocial: Yes Depression Integumentary: No Blood Disorders: No Adverse Reaction/Blood Tranf: No Family Medical History No Pertinent Family Hx Physical Exam Height, Weight, BMI Height: 5'4" Weight: 195lbs. oz. 88.239593na; 22.00 BMI Method:Stated General Appearance: WD/WN, no apparent distress, thin, other (CONSTANT MOVEMENTS; DOES NOT APPEAR TO BE IN ANY DISCOMFORT OR DISTRESS. ) Eyes: bilateral eye normal inspection Ears: bilateral ear TM normal Nose: normal inspection Mouth/Throat: No mandibular swelling; other (EXTENSIVE DENTAL DECAY, WITH MOST OF UPPER TEETH DECAYED DOWN TO GUMS--ESPECIALLY THE FRONT TEETH, LOWER TEETH ALSO WITH EXTENSIVE DECAY. BILATERAL LOWER MOLARS WITH DECAY DOWN TO GUMS/BROKEN TEETH. SLIGHT SWELLING TO ADJACENT GUMS BILATERALLY. NO FLUCTUANCE. NO SWELLING TO FACE OR MANDIBULAR AREA. 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 ) Progress/Results/Core Measures Results/Orders My Orders Orders - GABI BERNABE DO Rx-Amoxicillin Capsule (Rx-Polymox Capsu (05/17/21 04:03) Rx-Naproxen (Rx-Naprosyn) (05/17/21 04:03) Lidocaine 2% Viscous 15 Ml (Xylocaine Vi (05/17/21 04:15) Departure Impression Primary Impression: Dental caries Disposition: HOME, SELF-CARE Condition: Stable Departure-Patient Inst. Decision time for Depature: 04:04 Referrals: [facility] [place] [facility] [place] Patient Instructions: Tooth Decay, Adult (DC) Add. Discharge Instructions: LOTS OF FLUIDS SOFT FOODS FOLLOW UP WITH DENTIST SOON POSSIBLE--CALL [facility] OR DENTIST OF CHOICE TOMORROW MORNING TO SCHEDULE APPOINTMENT All discharge instructions reviewed with patient and/or family. Voiced understanding. Scripts Naproxen (Naproxen) 500 Mg Tablet.dr 500 MG PO BID, #20 TAB Prov: GABI BERNABE DO 05/17/21 Lidocaine HCl (Lidocaine HCl Viscous) 15 Ml Solution 1-2 ML MM Q3PBPNF, #120 ML Prov: GABI BERNABE DO 05/17/21 Amoxicillin (Amoxicillin) 875 Mg Tablet 875 MG PO BID, #20 TAB Prov: GABI BERNABE DO 05/17/21 GABI BERNABE DO May 17, 2021 04:06
[2021-05-17] MEDS ORDERED: LIDOCAINE 2% VISCOUS 15 ML UDC MM ONE (04:15)
== END 2021-05-17 04:40 | disposition home or self-care (01) ==
LOC: EDUNIT# 03:49 → ER 03:51
DX: K02.9 Dental caries, unspecified (principal); F17.210 Nicotine dependence, cigarettes, uncomplicated
CPT/HCPCS: 99283